=== PATIENT | female | born 1980 | race Caucasian/White ===

== ENCOUNTER 2016-05-14 05:13 | Emergency (ER) | payer OTHER ==
[~2016-05-14] VITALS: Ht 157.5 cm; Wt 76.8 kg
[~2016-05-14 05:13] MED LIST: NITR100C6 PO; PREN1TAB73 PO
[2016-05-14 05:16] VITALS: BP 153/89; PULSE 77; RESP 16; O2SAT 98
[2016-05-14] MEDS ORDERED: 0.9% Sodium Chloride 1,000 ML IV ONE (06:06)
--- NOTE | 2016-05-14 06:07 | ED.REPORT ---
HPI-General Illness Date of Service May 14, 2016 ED Provider: Nile Lowry MD A 35 year old female presents to the ED complaining of RLQ abdominal pain that began at approx. 0130 this morning. The patient describes the pain as "stabbing " but denies radiating pain. Her pain initially began in 09/2015 and she has been eating a gluten free diet for the past 8 months because the pain is exacerbated by eating. 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 Associated symptoms include nausea and vomiting. The patient's last menstrual cycle was in 04/2016. Patient denies fever or chills. Nursing Notes Stated Complaint: R SIDE ABDOMINAL PAIN Chief Complaint: Female Abdominal Pain Nursing Notes Reviewed: Yes Allergies: Coded Allergies: Penicillins (Verified Allergy, Severe, 05/14/16) morphine (Verified Adverse Reaction, Mild, Vomiting, 05/14/16) Scheduled Nitrofurantoin Monohyd Macrocr-Expunged Drug, (Macrobid-Expunged Drug, Do Not Renew!) 100 Mg Capsule 100 MG PO BID Vit/Fe Fumarate/Fa-Expunged Drug, Do (-Expunged Drug, Do Not Renew!) 1 Tab Tablet 1 TAB PO DAILY Scheduled PRN Hydrocodone-Acetaminophen 5-325 mg (Hydrocodone-Acetaminophen 5-325 mg) 1 Each Tablet 1 TABLET PO Q4H PRN PRN For Pain Ondansetron ODT (Zofran ODT) 4 Mg Tablet 4 MG PO Q4H PRN PRN For Nausea General Time Seen by MD: 05:54 Chief Complaint Abdominal pain Hx Obtained From: Patient Arrived By: Walk-in Sudden in Onset?: Yes Onset Occurred: 1 - 4 hours ago Symptom Duration: Since onset Location: : Abdomen Quality: Painful Radiation: : Does not radiate Severity: Current: Moderate Severity: Maximum: Severe Associated with: Reports: Abdominal pain, Nausea, Vomiting, Denies: Fever Pertinent Negative: Pt denies other symptoms Recent Healthcare: No recent doctor visit, No recent hospitalization Past Medical History Past Medical History None reported. Past Surgical History None reported. Smoking History Unknown if Ever Smoker Social History Other Social History: Good social support, Local resident Ambulatory Status Independent Review of Systems Full Review of Systems Constitutional: Denies: Chills, Fever Respiratory: Denies: Shortness of breath Cardiovascular: Denies: Chest pain GI: Reports: Abdominal pain, Nausea, Vomiting Neurologic: Denies: Change LOC Complete sys rev & neg: except as marked. Physical Exam Vital Signs Vital Signs Date Time Temp Pulse Resp B/P Pulse Ox O2 Delivery O2 Flow Rate FiO2 05/14/16 09:34 36.4 83 18 111/75 100 Room Air 05/14/16 09:27 36.4 83 18 111/75 100 05/14/16 05:16 36.6 77 16 153/89 98 Room Air Initial VS: Reviewed Neck: Supple, Non-tender, Full range of motion Skin: Warm, Dry, No cyanosis Neurologic: Alert, Oriented, Nonfocal Psychiatric: Mood/affect normal, Behavior normal, Normal thought content General/Constitutional: Awake, Alert Head / Eyes: Atraumatic, Normocephalic, PERRL ENT: Atraumatic, Airway patent Mouth: Positive: Mucous membranes dry Respiratory / Chest: Atraumatic, Breath sounds NL, Breath sounds = bilat Cardiovascular: Heart rate NL, Regular rhythm, Heart sounds NL Abdomen: Atraumatic, Soft Tenderness/Guarding/Rebound: Positive: Tender RLQ... ABDOMEN: Pain with deep inspiration Patient is clutching RLQ Upper Extremities Upper Extremity / MS: Atraumatic, Neurologic intact, Vascular intact Lower Extremity / Pelvis / MS: Atraumatic, Neurologic intact, Vascular intact, No edema (No calf swelling) Interpretation & Diagnostics ABDOMINAL US: Read by Radiology IMPRESSION: 1. 16mm diameter sludgeball versus calculus within the gallbladder neck versus common bile duct. No evidence of associated biliary ductal dilatation. Finding could be further assessed with MRCP, if clinically indicated. Dictated by: Mireya Sanchez M.D. on 05/14/2016 at 8:44 Lab Results Interpretation Result Diagram: 05/14/16 0553 05/14/16 0553 Test 05/14/16 05:53 05/14/16 06:10 White Blood Count 10.2th/mm3 (3.8-10.1) Red Blood Count 5.22mil/mm3 (3.90-5.20) Hemoglobin 11.3g/dL (12.0-15.6) Hematocrit 36.7% (35.0-46.0) Mean Corpuscular Volume 70.3fL (81-100) Mean Corpuscular Hemoglobin 21.6pg (27.0-35.0) Mean Corpuscular Hemoglobin Concent 30.8% (32.0-37.0) Red Cell Distribution Width 17.6% (12.3-15.4) Platelet Count 251bil/L (150-400) Neutrophils (%) (Auto) 67.8% (40-74) Lymphocytes (%) (Auto) 19.2% (14-46) Monocytes (%) (Auto) 9.0% (4-12) Eosinophils (%) (Auto) 3.3% (0-5) Basophils (%) (Auto) 0.4% (0-3) Sodium Level 140mEq/L (134-144) Potassium Level 4.2mEq/L (3.5-5.2) Chloride Level 108mEq/L (97-108) Carbon Dioxide Level 21mmol/L (18-29) Blood Urea Nitrogen 11mg/dL (6-20) Creatinine 0.83mg/dL (0.57-1.00) Estimat Glomerular Filtration Rate 113mL/min (>59) Glucose Level 96mg/dL (60-99) Calcium Level 9.2mg/dL (8.5-10.1) Magnesium Level 1.8mg/dL (1.6-2.6) Total Bilirubin 0.2mg/dL (0.0-1.2) Aspartate Amino Transf (AST/SGOT) 13U/L (0-50) Alanine Aminotransferase (ALT/SGPT) 14U/L (0-32) Alkaline Phosphatase 56U/L (25-150) Total Protein 6.7g/dL (6.4-8.4) Albumin 3.9g/dL (3.4-5.0) Lipase 49U/L (13-60) Hold Sauceda Top Tube Received (Received) Urine Color Yellow (YELLOW) Urine Appearance Hazy (CLEAR,HAZY) Urine pH 6.0 (5.0-8.0) Urine Specific [place] 1.025 (1.003-1.035) Urine Protein Negativemg/dL (NEG,TRACE) Urine Glucose (UA) Negativemg/dL (NEGATIVE) Urine Ketones Tracemg/dL (NEGATIVE) Urine Occult Blood Negative (NEGATIVE) Urine Nitrite Negative (NEGATIVE) Urine Bilirubin Negative (NEGATIVE) Urine Urobilinogen Normalmg/dL (NORMAL) Urine Leukocyte Esterase Negative (NEGATIVE) Urine RBC 0-2/hpf (0-2) Urine WBC 0-5/hpf (0-5) Urine Epithelial Cells Few/hpf (NONE-MOD) Urine Crystals Oxalic acid crystals (NONE Urine Bacteria Few/hpf (NONE-FEW) Urine Hyaline Casts None/lpf (NONE) Urine Granular Casts None seen (NONE SEEN) Urine Waxy Casts None seen (NONE SEEN) Urine Red Blood Cell Casts None seen (NONE SEEN) Urine White Blood Cell Casts None seen (NONE SEEN) Urine Mucus Present (None Seen) Urine Trichomonas None seen (NONE SEEN) Urine Yeast None (NONE SEEN) Urinalysis Comment None Urine Culture Reflexed Not indicated Re-Eval/Medical Decision Med Decision/Clinical Course A 35 year old female presents to the ED complaining of RLQ abdominal pain that began at approx. 0130 this morning. The patient describes the pain as "stabbing " but denies radiating pain. Her pain initially began in 09/2015 and she has been eating a gluten free diet for the past 8 months because the pain is exacerbated by eating. On arrival patient appeared uncomfortable but was in no significant distress with stable vital signs and afebrile. Patient was treated with the following medications with good effect. Zofran IV fluids Hydromorphone LABS leukocytes 10.2 Hematocrit 36.7 Chemistry is unremarkable LFT unremarkable kidney function normal Urinalyses remarkable for oxalic acid crystals No signs of UTI Ultrasound was obtained as above and demonstrated significant amount of sludge as well as gallstones. There was mention of possible stone in the common bile duct however there was no evidence of biliary ductal dilatation and the patient' s LFTs and bilirubin were not elevated. I discussed the case with Dr. Roy ( gen surg). Given the patient had complete resolution of her symptoms after pain medication and relatively benign abdominal examination without evidence of recent cholangitis or cholecystitis is not felt that the patient required immediate surgical intervention. The patient was prescribed Dawes for pain and will follow-up for outpatient cholecystectomy. Follow-up and return precautions were reviewed in detail and she verbalized understanding and agreement with the plan. She was discharged in good condition. Time of Eval: 08:52 Patient Status: Condition improved Re-Evaluation/Progress Note: Patient is rechecked. She is informed of her lab results, US results and diagnosis. All of the patient's questions are addressed. She understands and agrees with the treatment plan. Consultation : Referral / Consult Name: Lionel Roy MD Consulted With: Surgeon Call Returned at: 09:25 Relationship Mgr: Will see patient, Agrees with eval, Agrees with plan Counseled Regarding: Diagnosis, Lab results, Need for follow-up, When/why to return to ED Discharge & Departure Primary Impression: Biliary colic Additional Impressions: Right upper quadrant pain Nausea and vomiting Vomiting type: unspecified Vomiting Intractability: unspecified Qualified Code: R11.2 - Nausea with vomiting, unspecified Obesity Obesity type: unspecified obesity type Obesity severity: unspecified obesity severity Qualified Code: E66.9 - Obesity, unspecified Postprandial abdominal pain in right upper quadrant Disposition: Home Discharge Condition All VS Reviewed: Yes Condition: Stable Patient Instructions: Biliary Colic (ED) Additional Instructions: Thank you for seeking care at emergency room. It is difficult for us to make definitive diagnoses in the ED but we believe that you are experiencing a biliary colic. Our primary goal today in the ED was to evaluate you for any life-threatening conditions. Your evaluation was reassuring. You will be discharged with a prescription for pain medication, please take as needed. The medication you have been prescribed is a narcotic and may cause drowsiness. Please do not drink, drive or use additional acetaminophen while on this medication. You should schedule an appointment with a surgeon (see referral) later today to schedule removal of her gallbladder. You should return to the ED immediately if you develop fevers, vomiting, increasing pain, lightheadedness, weakness or any other concerning signs or symptoms. Thank you for letting us partake in your care today. Narcotic Pain Medicine You have been prescribed a narcotic for pain relief. These drugs are usually combined with acetaminophen (Tylenol#3, Percocet, Darvocet, Anexsia, Vicodin) or aspirin (Empirin#3, Percodan, Synalogs-DC) for increased effect. Narcotics act on the central nervous system to reduce pain; they also impair mental alertness and physical abilities. We advise you not to drink alcohol, drive a car, or operate dangerous equipment when you are taking theses drugs. You can lessen stomach irritation from your medicine by taking it with meals or a full glass of water. Common side effects of narcotics are: Nausea and vomiting, heartburn, consitpation, dizziness, sleepiness, and mood changes. If you have bothersome side effects or symptoms of an allergic reaction (itching, hives, rash), stop taking your medicine and call your doctor or the emergency room right away. Please keep your narcotic medicine well out of the reach of children. Referrals: NOPCP (PCP) [facility] Att[facility] Portions of this note were transcribed by Venkat Jones. I, Dr. Lowry personally performed the history, physical exam and medical decision-making; I reviewed and confirmed the accuracy of the information in the transcribed note. Signed by: Venkat Jones, 05/14/16, 0926. Nile Lowry MD May 14, 2016 06:07 VENKAT JONES May 14, 2016 06:10
[2016-05-14] MEDS ORDERED: Ondansetron 2 mg/mL 2 mL Inj IVPUSH ONE (06:10)
[2016-05-14] MEDS: HYDROmorphone 0.5 mg/0.5 mL iSecure Syringe IVPUSH PRN ×2 (06:14→07:16)
[2016-05-14] MEDS ORDERED: fentaNYL-PF 50 mCg/mL 2 mL Inj IVPUSH ONE (06:25)
[2016-05-14 06:26] LABS: BASOPHILS % (AUTO) 0.4 % (0-3); EOSINOPHILS % (AUTO) 3.3 % (0-5); Magnesium 1.8 mg/dL (1.6-2.6); Mean Corpuscular Hemoglobin 21.6 pg (27.0-35.0); Mean Corpuscular Volume 70.3 fL (81-100); NEUTROPHILS % (AUTO) 67.8 % (40-74); Platelet Count 251 bil/L (150-400)
[2016-05-14 07:11] LABS: APPEARANCE,URINE HAZY (CLEAR,HAZY); COLOR,URINE YELLOW (YELLOW); OCCULT BLOOD,URINE NEGATIVE (NEGATIVE); UROBILINOGEN,URINE NORMAL (NORMAL)
--- NOTE | 2016-05-14 08:46 | DRSVH ---
PROCEDURE: US ABDOMEN INDICATIONS: ruq pain TECHNIQUE: Real-time scanning was performed of the abdominal and retroperitoneal organs, with image documentatio n. COMPARISON: None. FINDINGS: Liver length: 14.76 cm Gallbladder Wall Thickness: 2 mm CHD: 9.50 mm CBD: 4.70 mm Spleen length: 12.31 cm Right kidney length: 9.62 cm Left kidney length: 10.57 cm Aorta(Proximal): 1.67 cm Aorta(Mid): 1.47 cm Aorta(Distal): 1.26 cm, 1.38 cm RCIA: 7.40 mm LCIA: 8.80 mm Liver: Liver is normal in size and homogeneously increased in in echotexture. Gallbladder: There is a 16mm diameter sludgeball versus calculus within the gallbladder neck versus c ommon bile duct Biliary ducts: Intrahepatic bile ducts are non-dilated. Extrahepatic bile duct caliber is normal. Normal is 6-7 mm or less in diameter, or 10 mm or less post-cholecystectomy. Pancreas: Visualized portions of the pancreas are sonographically normal. Spleen: Spleen is normal in size and homogeneous in echotexture. Kidneys: Kidneys are normal in size and echotexture. No hydronephrosis or nephrolithiasis. No johnny d masses. Aorta: Visualized aorta is normal in caliber at less than 3 cm. Iliacs: Proximal common iliac arteries are normal in caliber at less than 2.5 cm. IVC: Intrahepatic inferior vena cava is patent. Miscellaneous: No free abdominal fluid. IMPRESSION: 1. 16mm diameter sludgeball versus calculus within the gallbladder neck versus common bile duct. No e vidence of associated biliary ductal dilatation. Finding could be further assessed with MRCP, if clin ically indicated. Dictated by: Mireya Sanchez M.D. on 05/14/2016 at 8:44 Approved by: Mireya Sanchez M.D. on 05/14/2016 at 8:44
[2016-05-14 09:27] VITALS: BP 111/75; PULSE 83; RESP 18; O2SAT 100
[2016-05-14] MEDS ORDERED: ONDA4TAB9 PO (09:29)
[2016-05-14] MEDS ORDERED: HYDR-4003 PO (09:29)
[2016-05-14 09:34] VITALS: BP 111/75; PULSE 83; RESP 18; O2SAT 100
== END 2016-05-14 09:30 | disposition home or self-care (01) ==
LOC: SED 05:13
DX: K80.50 Calculus of bile duct without cholangitis or cholecystitis without obstruction (principal); E66.9 Obesity, unspecified; F17.200 Nicotine dependence, unspecified, uncomplicated; Z88.0 Allergy status to penicillin; Z88.5 Allergy status to narcotic agent; Z68.31 Body mass index [BMI] 31.0-31.9, adult
CPT/HCPCS: 36415; 76700; 80053; 81000; 81025; 83690; 83735; 85025; 96361; 96374; 96375; 99285; J2405; J7030

== ENCOUNTER 2016-05-17 10:11 | Day surgery (SDC) | payer OTHER ==
[~2016-05-17] VITALS: Ht 157.5 cm; Wt 78.3 kg
[2016-05-17] VITALS (8 sets, daily range): BP systolic 102–144; BP diastolic 46–78; PULSE 52–86; RESP 12–24; O2SAT 94–100
[~2016-05-17 10:11] MED LIST changes: +HYDR-4003 PO; +ONDA4TAB9 PO
[2016-05-17] MEDS ORDERED: Rocuronium 10 mg/mL 5 mL Inj ONE (10:12)
[2016-05-17] MEDS ORDERED: Glycopyrrolate 0.2 mg/mL 5 mL Inj ONE (10:12)
[2016-05-17] MEDS ORDERED: Neostigmine 1 mg/mL 5 mL Inj ONE (10:12)
[2016-05-17] MEDS ORDERED: fentaNYL-PF 50 mCg/mL 2 mL Inj ONE (10:12)
[2016-05-17] MEDS ORDERED: Propofol 10,000 mCg/mL 20 mL Inj ONE (10:12)
[2016-05-17] MEDS ORDERED: Ondansetron 2 mg/mL 2 mL Inj ONE (10:12)
[2016-05-17] MEDS ORDERED: Dexamethasone 4 mg/mL Inj ONE (10:12)
[2016-05-17] MEDS ORDERED: Succinylcholine Chloride 20 mg/mL 5 mL Inj ONE (10:12)
[2016-05-17] MEDS: Lactated Ringer's 1,000 ML IV SCH ×2 (10:53→12:42)
[2016-05-17] MEDS ORDERED: Lactated Ringer's 1,000 ML IV SCH (11:17)
[2016-05-17] MEDS ORDERED: Lactated Ringer's 500 ML IV PRN (11:17)
[2016-05-17] MEDS ORDERED: Labetalol 5 mg/mL 4 mL Inj IV PRN (11:20)
[2016-05-17] MEDS ORDERED: hydrOXYzine Inj 25 MG/1 mL SDV IM PRN (11:20)
[2016-05-17] MEDS ORDERED: HYDROmorphone 1 mg/mL Inj IVPUSH PRN (11:20)
[2016-05-17] MEDS ORDERED: hydrALAZINE 20 mg/mL Inj IVPUSH PRN (11:20)
[2016-05-17] MEDS ORDERED: MetoCLOpramide 5 mg/mL 2 mL Inj IVPUSH PRN (11:20)
[2016-05-17] MEDS ORDERED: EPHEDrine Sulfate 50 mg/mL Inj IVPUSH PRN (11:20)
[2016-05-17] MEDS ORDERED: Phenylephrine 10,000 mCg/mL Inj IVPUSH PRN (11:20)
[2016-05-17] MEDS ORDERED: Ondansetron 2 mg/mL 2 mL Inj IVPUSH PRN (11:20)
[2016-05-17] MEDS ORDERED: EPHEDrine Sulfate 50 mg/mL Inj IM PRN (11:20)
[2016-05-17] MEDS: Vancomycin Inj 1,000 MG in IV Premix 1 EACH IV SCH (11:55)
--- NOTE | 2016-05-17 12:36 | PCM.HPANE ---
Patient Data Surgeon Admitting Provider: Attending Provider:Peña Davis MD Primary Care Physician:Sarah Other Provider:Francisca Nguyen Anesthesia Reason for Visit Acute Cholecystitis Ht/WT & BMI Height (Feet): 5 Height (Inches): 2 Weight (Kilograms): 78.3 Body Mass Index 31.00 Allergies Coded Allergies: Penicillins (Verified Allergy, Severe, 05/17/16) morphine (Verified Adverse Reaction, Mild, Vomiting, 05/17/16) Past Anesthesia History Anesthesia History: Denies:: Abnormal Airway, Anesthesia Reactions, Difficult Intubation, Fam Anesthesia Reaction Diabetes History Hx Diabetes?: No MRSA MRSA: No Medications Hypertension Medication: No Home Meds Incl Beta Urmila: No Active Scripts Ondansetron ODT (Zofran ODT)4 Mg Tablet4 Mg PO Q4H PRN For Nausea #20 TABLET Prov:Nile Lowry MD 05/14/16 Hydrocodone-Acetaminophen 5-325 mg 1 Each Tablet1 Tablet PO Q4H PRN For Pain # 20 TABLET Prov:Nile Lowry MD 05/14/16 Discontinued Reported Medications Vit/Fe Fumarate/Fa-Expunged Drug, Do (-Expunged Drug, Do Not Renew!)1 Tab Tablet1 Tab PO DAILY Ref 0 02/20/09 Nitrofurantoin Monohyd Macrocr-Expunged Drug, (Macrobid-Expunged Drug, Do Not Renew!)100 Mg [id number] Mg PO BID Ref 0 02/20/09 History History of ENT Problems?: No HEENT History: Positive for:: Hearing Problem Denies:: Abnormal Airway Cataracts Difficult Intubation Dysphagia Glaucoma Sinus Problem TMJ Teeth Condition: Missing Teeth Hx of Heart Problems?: No Cardiovascular History: Denies:: AICD Abdominal Aortic Aneurism Atrial Fibrillation Cardiac Surgery Congestive Heart Failure Edema Heart Murmur Hypertension Irregular Heartbeat Pacemaker Peripheral Vascular Rheumatic Fever Thrombophlebitis Hx of Respiratory Problem?: No Respiratory History: Denies:: Asthma COPD Dyspnea Emphysema Oxygen Administration Pneumonia Tuberculosis Use of C-PAP Machine Use of Inhalers / NEBS Hx Neurologic Problems?: Yes Neurological History: Positive for:: Headaches (cycles with period) Denies:: Alzheimer's Disease CVA Dementia Dizziness Multiple Sclerosis Parkinson's Disease Seizures TIA Hx of GI Problems?: Yes Gastrointestinal History: Positive for:: Gall Bladder Disease (current admission problem) Gastroesphageal Reflux (occasional) Denies:: Cirrhosis Gastrointestinal Bleeding Heartburn Hepatitis Hiatal Hernia Liver Disease Hx of Problems?: No Genitourinary History: Positive for:: Kidney Stones (7 yrs ago, passed spontaneously) Denies:: Urinary Tract Infection Female Hx: Denies:: Currently (tubal ligation) Problems with Breasts? Skin History: Denies:: History Skin Disorders? Pressure Ulcers Hx Musculoskeletal Problems?: Yes Musculoskeletal History: Positive for:: Rheumatoid Arthritis (juvenile rheumatiod arthritis current in remission) Denies:: Back Injury Degenerative Joint Fibromyalgia Joint Replacement Musculoskeletal Trauma Myasthenia Gravis Hx of Psycho/Social Problems?: Yes Psycho Social History: Positive for:: Hx Depression Hx Surgeries?: Yes (C-sections, tonsils) Hx Any Other Health Problems?: Yes Other History: Denies:: Cancer Thyroid Disease History Blood Transfusions: Positive for:: Accept Blood Products? Denies:: Blood Transfusions Hx Diabetes: No Hx Alcohol Use: NoHx Substance Use: No Smoking Status: Current Every Day Smoker Unknown if Ever Smoker Have You Smoked inLast 12 mo: Yes Stop/Bang S-Snoring: Do You Snore Loudly: No T-Tired: feel tired, fatigued: No O-Obsered: Observed not breath: No P-Blood Pressure: treated: No B- Body Mass Index > 35 kg/m2: No A- Age over 50: No N- Neck Large Circumference: No G- Gender Male: No KENISHA Total Score: 0 KENISHA Risk Assessment: Low Risk, <3 Yes Risk Assessment Category Category 1A: Patient has history of documented sleep apnea, and HAS NOT received any narcotic, sedative or anesthesia administration during this stay. Category 1B: Patient has history of documented sleep apnea, and HAS received any narcotic , sedative or anesthesia administration during this stay Category 2: Patient has SUSPECTED Obstructive Sleep Apnea, and HAS received any narcotic , sedative or anesthesia administration during this stay. Category 3: Patient has SUSPECTED Obstructive Sleep Apnea and HAS NOT received narcotic, sedative or anesthesia administration during this stay. Category 4: Outpatient in Procedural Areas with known sleep apnea or who screen positive for High Risk via the STOP/BANG questionnaire. Exam Exam Vital Signs Vital Signs Date Time Temp Pulse Resp B/P Pulse Ox O2 Delivery O2 Flow Rate FiO2 05/17/16 10:26 37.3 65 16 106/72 100 Room Air General Appearance: Alert, Oriented X3, Cooperative, No Acute Distress HEENT/AIRWAY: MP 1 Lungs: Clear to Auscultation, Normal Air Movement Heart: Exam Unremarkable, Regular Rate/Rhythm, No Murmurs/Rubs/Gallops Meds/Labs/Diagnostics Admission Meds Current Medications Lactated Ringer's (Lr) 1,000 ml @ 120 mls/hr Q8H20M IV Last administered on 10:53; Start 05/17/16 at 05:00; Stop 05/17/16 at 13:19 Gabapentin (Neurontin) 600 mg PREOP ONCE PO Last administered on 05/17/16 10: 53; Start 05/17/16 at 06:00; Stop 05/17/16 at 06:01; Status DC Celecoxib (CeleBREX) 200 mg PREOP ONCE PO Last administered on 05/17/16 10:53 ; Start 05/17/16 at 06:00; Stop 05/17/16 at 06:01; Status DC Scopolamine (Transderm-Scop Patch) 1.5 mg ONCE ONCE TOPICAL Last administered on 05/17/16 10:53; Start 05/17/16 at 05:00; Stop 05/17/16 at 05:01; Status DC Acetaminophen (Tylenol) 650 mg PREOP ONCE PO Last administered on 05/17/16 10: 53; Start 05/17/16 at 06:00; Stop 05/17/16 at 06:01; Status DC Plan Impression Patient chart reviewed, patient interviewed and anesthestic plan with risks, benefits, and alternatives discussed, and informed consent obtained. NPO Status: Nothing solids since 05/16/15 1930; clears stopped at 0800 ASA Physical Status: ASA2 Mod Systemic Disease Anesthetic Plan: GA Bene/Risks/Altern/Consents: Yes HP Complete Prior to Induction: Yes Doroteo Mendoza MD May 17, 2016 11:18
[2016-05-17] MEDS ORDERED: Iopamidol-300 50 mL Inj INJ ONE (13:06)
[2016-05-17] MEDS ORDERED: Bupivacaine 0.5%/EPI 50 mL Inj INJ ONE (13:06)
--- NOTE | 2016-05-17 13:54 | PCM.DISURG ---
Surgical Discharge Instruction Date of Service May 17, 2016 Dates of Hospitalization Date of Hospital Admission Providers Admitting Physician: Primary Care Physician: Sarah Attending Physician: Peña Davis MD Discharge Diagnosis Discharge Diagnosis Chronic cholecystitis Diet Discharge Diet: No restrictions Activity Discharge Activity-General: No lifting >15 pounds for 2 weeks Dressing and Incisional Care Dressing Care: Allow Steri Stripes to fall off, Remove outer dressing after 24 hrs Hygiene: May shower after (24 hours) Follow Up Plan Follow Up Plan In the general surgery [place] postoperative clinic in 2 weeks Call your provider for: Fever (over 101.5), Vomiting, Discharge @ incision, pus discharge Peña Davis MD May 17, 2016 13:54
[2016-05-17] MEDS ORDERED: HYDROcodone-APAP 5-325 mg Tablet PO PRN (13:55)
--- NOTE | 2016-05-17 13:58 | PCM.SURGOP ---
Surgical Operative Report Date of Service: May 17, 2016 Pre Operative Diagnosis Acute cholecystitis Post Operative Diagnosis Chronic cholecystitis Procedure: Laparoscopic cholecystectomy with intraoperative cholangiogram Surgeon and Patient Support Representative: Surgeon: Peña Davis MD Assistants: Gloria Wolff PA-C Indication for Procedure 35-year-old woman who has been having episodic right upper quadrant pain since September, who presented to the emergency department several days ago with an acute exacerbation of her pain, which was unrelenting. An ultrasound showed a 1.6 cm stone versus sludge ball in the gallbladder neck. After discussion of risks and benefits, she agreed to proceed with cholecystectomy. Findings: There was a large stone in the gallbladder neck, but the gallbladder was not edematous or acutely inflamed. The intraoperative cholangiogram was normal. Procedure Details After smooth induction of general endotracheal anesthesia, the patient was placed in the supine position with the right arm tucked. A procedural pause was performed according to the SCOAP checklist, and all were found to be in agreement. A curvilinear infraumbilical incision was made. Dissection was carried down with electrocautery until the midline fascia was incised vertically, and the peritoneal cavity entered without difficulty. Pneumoperitoneum was established. Inspection revealed a fairly normal looking gallbladder. 3 additional ports were placed under direct visualization. One was placed in the midline epigastrium, and 2 in the right subcostal region. The fundus of the gallbladder was then grasped and retracted cephalad, revealing a fairly large stone in the gallbladder infundibulum. The infundibulum of the gallbladder was grasped. The peritoneum was incised. The cystic artery was doubly clipped and divided. The critical view was obtained using the infundibular technique. A clip was placed on the gallbladder side of the cystic duct and a cystic ductotomy was made. A cholangiogram was obtained using the 5 [place] cholangiocatheter. This demonstrated a long cystic duct, normal ductal anatomy , normal flow into the duodenum. The cholangiocatheter was removed. 2 clips were placed on the common bile duct side of the cystic duct ductotomy, and the duct was divided with scissors. The remainder of the gallbladder was dissected out of the gallbladder fossa with electrocautery. The gallbladder was placed into an Endo Catch bag and removed from the umbilical port site. It was passed off the field and sent for permanent pathology. The gallbladder fossa was inspected and irrigated. Hemostasis was adequate, and there was no bile leak. The ports were removed under direct visualization and pneumoperitoneum was released. The fascia of the umbilical port site was closed using an 0 Vicryl suture in a [id number]. The skin incisions were closed using running 4-0 Monocryl subcuticular stitches. Steri-Strips and sterile dressings were applied. At the end of the case all needle and sponge counts were correct 2. The patient was awakened from anesthesia without difficulty, and taken to the recovery room in satisfactory condition, having tolerated the procedure well. Complications There were no periprocedural complications identified. Surgical Specimen Removed: Yes Specimen sent to Pathology: Yes Surgical Specimen description: Gallbladder Anesthetic Plan: GA Grafts, Implants: None Output, Estimated Blood Loss: 30 Blood Administration during olivares: No Drains: None Catheters: None Peña Davis MD May 17, 2016 13:58
[2016-05-17] MEDS: fentaNYL-PF 50 mCg/mL 2 mL Inj IVPUSH PRN ×2 (14:17→14:39)
[2016-05-17] MEDS ORDERED: Lactated Ringer's 1,000 ML IV ONE (14:30)
--- NOTE | 2016-05-17 14:39 | PCM.ANEP1 ---
Post Anesthesia Phase 1 PACU Phase 1 Assessment Date of Service: May 17, 2016 Vital Signs Vital Signs Date Time Temp Pulse Resp B/P Pulse Ox O2 Delivery O2 Flow Rate FiO2 05/17/16 10:26 37.3 65 16 106/72 100 Room Air Anesthetic Administered: GA Level of Alertness: Awake, talking MAGANA's with Equal Strength: Yes Pain: No Nausea or Vomiting: No Oxygen Delivery: Nasal Cannula Lungs: Clear to Auscultation, Normal Air Movement Summary VSS Doroteo Mendoza MD May 17, 2016 14:39
--- NOTE | 2016-05-17 15:06 | DRSVH ---
PROCEDURE: X-RAY OPERATIVE CHOLANGIOGRAM ([id number]) INDICATIONS: ACUTE CHOLECYSTITIS COMPARISON: None. FINDINGS: Biliary ducts: The surgeon injected contrast into the biliary ducts after cannulation of the cystic duct stump. Visualized intra- and extrahepatic bile ducts are normal in caliber, without strictures. No intraluminal filling defects to suggest retained ductal stones or sludge. No evidence for iatro genic ductal injury. Duodenum: Contrast flows promptly through the sphincter of Oddi into the duodenum, which appears nor mal in caliber. IMPRESSION: Normal operative cholangiogram Dictated by: Vivek John M.D. on 05/17/2016 at 15:03 Approved by: Vivek John M.D. on 05/17/2016 at 15:03
--- NOTE | 2016-05-17 15:38 | PCM.ANEP2 ---
Post Anesthesia Evaluation ASA/CMS Post Anesthesia VS in Patient's Normal Range?: Yes Resp Stable; Airway Patent?: Yes CV Function & Hydration Stable: Yes Mental Status Recovered?: Yes Pain control Satisfactory?: Yes N/V Control Satisfactory?: Yes Doroteo Mendoza MD May 17, 2016 15:38
--- NOTE | 2016-05-21 15:28 | PATH ---
SURGICAL PATHOLOGY Attending Physician:Tenisha Barrett CASE STATUS: Signed Out PATIENT NAME: JOIE ASH PID: [id number] : 1980 DATE COLLECTED:05/17/2016 00:00 SPECIMEN: Gallbladder CLINICAL HISTORY: GALLBLADDER FINAL DIAGNOSIS: 1.GALLBLADDER: CHOLELITHIASIS. NO EVIDENCE OF MALIGNANCY. ICD10 CODE K80.7 GROSS DESCRIPTION: The specimen is sublabeled "gallbladder" and consists of an intact 10.0 x 3.0 x 3.0 CM gallbladder. The serosa is smooth. The wall is 0.2-0.3 CM in thickness. The mucosa is a light pink-tripathi in color. The lumen contains a thick light green mucoid material and one dark green rough calculus which measures 1.7 x 1.3 x 1.3 CM. 5 nutrition representative sections are submitted in one cassette. 05/18/2016 DAC MICRO DESCRIPTION: See diagnosis. ICD-9 CODES: CPT CODES: 1: 65965 Electronically Signed Out Sade Cohen MD [facility] [address], [place] [address] Technical component performed at [facility], [address] [place] [address] Ave, [address], [address]
== END 2016-05-17 23:59 | disposition home or self-care (01) ==
LOC: SAS 10:11
PROVIDERS: ATTEND Student in an Organized Health Care Education/Training Program
DX: K80.20 Calculus of gallbladder without cholecystitis without obstruction (principal); F17.210 Nicotine dependence, cigarettes, uncomplicated
CPT/HCPCS: 47563; 74300; J0330; J1100; J2250; J2405; J2710; J2765; J7120; Q9967